=== PATIENT | female | born 2000 | race Caucasian/White ===

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

== ENCOUNTER 2022-12-07 21:03 | Emergency (ER) | payer MEDICAID ==
[~2022-12-07] VITALS: Ht 165.1 cm; Wt 69.4 kg
[2022-12-07 21:38] VITALS: BP 115/71; PULSE 94; RESP 16; TEMP 98; O2SAT 95
[2022-12-07] MEDS ORDERED: HYDR-2734 TP (23:28)
[2022-12-07] MEDS ORDERED: DOCU-299 PO (23:28)
== END 2022-12-07 23:36 | disposition home or self-care (01) ==
LOC: MED 21:03
DX: K64.9 Unspecified hemorrhoids (principal)
CPT/HCPCS: 81002; 81025; 99282